=== PATIENT | male | born 1940 | race Caucasian/White ===

== ENCOUNTER → 2017-03-30 | Outpatient (CLI) | payer MEDICARE, OTHER | LOC: GMAL 10:33 | PROVIDERS: ATTEND Family Medicine | DX: D51.3 Other dietary vitamin B12 deficiency anemia (principal); E55.9 Vitamin D deficiency, unspecified; Z79.899 Other long term (current) drug therapy ==

== ENCOUNTER → 2017-04-03 | Outpatient (CLI) | payer MEDICARE, OTHER | END | disposition home or self-care (01) | LOC: GMAL 14:06 | PROVIDERS: ATTEND Family Medicine | DX: Z12.5 Encounter for screening for malignant neoplasm of prostate (principal) ==

== ENCOUNTER → 2018-05-15 | Outpatient (CLI) | payer MEDICARE, OTHER | LOC: GMAL 10:47 | PROVIDERS: ATTEND Family Medicine | DX: D51.3 Other dietary vitamin B12 deficiency anemia (principal); R53.83 Other fatigue; E55.9 Vitamin D deficiency, unspecified; Z12.5 Encounter for screening for malignant neoplasm of prostate | CPT/HCPCS: 82306; 82607; 84443; G0103 ==

== ENCOUNTER → 2018-05-22 | Outpatient (CLI) | payer MEDICARE, OTHER ==
--- NOTE | 2018-05-22 12:16 | US ---
EXAM DESCRIPTION: Abdomen,Complete CLINICAL HISTORY: ABDOMINAL PAIN COMPARISON: CT abdomen and pelvis December 22, 2014 TECHNIQUE: Complete abdominal ultrasound FINDINGS: Visualized portions of the pancreas are unremarkable. No peripancreatic fluid. Bowel gas obscures some areas. Normal caliber of the aorta. Normal appearance of the inferior vena cava. Liver parenchyma is homogeneous in texture with increased echogenicity suggesting mild steatosis. No liver mass or intrahepatic bile duct dilatation. No liver surface irregularity. Normal appearance of hepatic veins and portal vein. Gallbladder appears normal in size with a single stone in the neck measuring 9 mm. Sonographic Sal's sign was reported as negative. No gallbladder wall thickening. Radionuclide hepatobiliary scan may be helpful. Common bile duct is normal in caliber measuring 3.5 mm. The right kidney measures 7.2 cm in length. This is abnormally small consistent with global atrophy or chronic scarring. Correlate with renal function tests. Normal renal cortical echogenicity. Marked cortical thinning is seen at the upper and lower poles. No right renal mass, shadowing stone or cyst. There is no hydronephrosis. Spleen is normal in size. No focal splenic lesion. The left kidney measures 9.1 cm in length which is small. Many cysts are seen replacing much of the left kidney. The visualized parenchyma has normal echogenicity. Large cyst or renal pelvis measures 8.6 x 5.4 x 9.5 cm. No stones. Parapelvic cysts are thought most likely but there could be a large extrarenal pelvis. Compared to CT abdomen and pelvis December 22, 2014, a rim calcified gallstone was present in the gallbladder at that time. The liver did not appear particularly low in density. Right kidney was small. Left kidney was enlarged by multiple cysts. Parapelvic cysts are favored over hydronephrosis. Delayed postcontrast CT images through the kidney obtained at that time showed intrarenal collecting system deformed by large parapelvic cysts with no obstruction of the collecting system. Multiple small cortical cysts were also present. IMPRESSION: Small right kidney. Multiple left renal parapelvic cysts. Single 9 mm calculus in the neck of the gallbladder. Electronically signed by: Abraham Florez MD 05/22/2018 12:15 PM CDT
== END ==
LOC: US 08:30
PROVIDERS: ATTEND Family Medicine
DX: K80.20 Calculus of gallbladder without cholecystitis without obstruction (principal); N27.0 Small kidney, unilateral; N28.1 Cyst of kidney, acquired; R10.9 Unspecified abdominal pain; M35.3 Polymyalgia rheumatica; R53.83 Other fatigue; M25.50 Pain in unspecified joint; M79.1 Myalgia

== ENCOUNTER 2018-09-05 01:50 | Inpatient (IN) | payer MEDICARE, OTHER ==
--- NOTE | 2018-09-05 02:24 | ED.PDOC ---
History of Present Illness - General Chief Complaint: Abdominal Pain Stated Complaint: abdominal pain Time Seen by Provider: 09/05/18 02:11 Information Source: patient Exam Limitations: no limitations - History of Present Illness Initial Comments: Bijan Omer 78 y/o male came to hospital with intermittent dull pain upper abdomen non radiating started this noontime after eating lunch [place] food.Had been diagnosed with gallstone 3 months ago.No N/V/D,no dysuria/hematuria ,with good BM,no constipation. Abdominal Pain Onset Location: epigastric Pain Radiation: no radiation, other - upper abdomen Quality: moderate, dull, intermittent, waxing/waning Timing/Duration: 7-24 hours Improving Factors: nothing Worsening Factors: eating Associated Symptoms: denies symptoms Review of Systems - Review of Systems Constitutional: States: no symptoms reported EENTM: States: no symptoms reported Respiratory: States: no symptoms reported Cardiology: States: no symptoms reported Gastrointestinal/Abdominal: States: see HPI, abdominal pain Genitourinary: States: no symptoms reported Musculoskeletal: States: no symptoms reported Skin: States: no symptoms reported Past Medical History (General) - Patient Medical History Hx Seizures: No Hx Stroke: No Hx Dementia: No Hx Asthma: No Hx of COPD: No Hx Cardiac Disorders: No Hx Congestive Heart Failure: No Hx Pacemaker: No Hx Hypertension: No Hx Thyroid Disease: No Hx Diabetes: No Hx Gastroesophageal Reflux: No Hx Renal Disease: No Hx Cancer: No Hx of HIV: No Hx Hepatitis C: No Hx MRSA: No Surgical History: no surgical history - Vaccination History Hx Influenza Vaccination: Yes - Social History Hx Tobacco Use: No Hx Alcohol Use: Yes - Social Hx Substance Use: No Hx Substance Use Treatment: No Hx Depression: No Hx Physical Abuse: No Hx Emotional Abuse: No Hx Suspected Abuse: No - Activities of Daily Living Patient Lives Alone: No - Triage Comment ED Triage Comment: diagnosed with gall stone in may, pain again to upper mid abdomen Family Medical History - Family History Mother Living Status: Unknown Hx Family Cancer: Yes - lung-dad Physical Exam - Physical Exam General Appearance: Alert, Comfortable, No apparent distress Eyes, Ears, Nose, Throat Exam: normal ENT inspection Neck: non-tender, supple, normal inspection Respiratory: chest non-tender, lungs clear, normal breath sounds, no respiratory distress Cardiovascular/Chest: normal peripheral pulses, regular rate, rhythm, no murmur Peripheral Pulses: No deficit Gastrointestinal/Abdominal: soft, no organomegaly, tenderness - upper abdominal area Back Exam: no CVA tenderness, no vertebral tenderness Extremity: no pedal edema, no calf tenderness Neurologic: alert, oriented x 3 Skin Exam: normal color, warm/dry Progress - Progress Progress: 09/05/18 02:50 Vital Signs - 8 hr 09/05/18 09/05/18 02:03 02:39 Temperature 97.0 F L Pulse Rate [ 58 L 60 Right] Respiratory 16 16 Rate Blood Pressure 166/98 140/85 [Left Arm] O2 Sat by Pulse 96 Oximetry - Results/Orders Results/Orders: Laboratory Results - last 24 hr 09/05/18 09/05/18 02:25 02:38 WBC 8.2 RBC 4.37 L Hgb 15.1 Hct 43.6 MCV 99.8 H MCH 34.5 H MCHC 34.6 RDW 12.2 Plt Count 199 MPV 7.9 Absolute Neuts (auto) 6.90 H Absolute Lymphs (auto) 0.70 L Absolute Monos (auto) 0.50 Absolute Eos (auto) 0.10 Absolute Basos (auto) 0.00 Neutrophils % 83.7 H Lymphocytes % 8.9 L Monocytes % 6.0 Eosinophils % 1.0 Basophils % 0.4 PT 10.1 INR 1.01 PTT (SP) 24.1 Sodium 141 Potassium 3.9 Chloride 105 Carbon Dioxide 27 Anion Gap 12.9 BUN 19 H Creatinine 1.23 BUN/Creatinine Ratio 15.4 Random Glucose 139 H Serum Osmolality 285.8 Calcium 10.6 H Magnesium 2.0 Total Bilirubin 1.7 H Direct Bilirubin 0.3 H Indirect Bilirubin 1.4 H AST 23 ALT 23 Alkaline Phosphatase 63 Creatine Kinase 75 CK-MB (CK-2) 1.2 CK-MB (CK-2) % Not Reportable Troponin I < 0.02 Serum Total Protein 7.1 Albumin 4.1 Lipase 31 Urine Color Yellow Urine Appearance Sl cloudy Urine pH 8.5 H Ur Specific [place] 1.020 Urine Protein Trace Urine Glucose (UA) Negative Urine Ketones Trace Urine Blood Negative Urine Nitrite Negative Urine Bilirubin Negative Urine Urobilinogen 0.2 Ur Leukocyte Esterase Negative Urine RBC 1-3 Urine WBC 3-5 H Ur Epithelial Cells 3-5 Amorphous Sediment 1+ Urine Bacteria 0 Discuss test result with patient and needs hospital for inflamed gallbladder and surgical referral. - EKG/XRAY/CT CT Ordered: Yes - abd/p-acute cholecystitis;cholelithiais Departure - Departure Clinical Impression: Cholecystitis, acute with cholelithiasis Qualifiers: Biliary obstruction: without biliary obstruction Qualified Code(s): K80.00 - Calculus of gallbladder with acute cholecystitis without obstruction Time of Disposition: 04:29 Disposition: Admit Patient Condition: Fair Departure Forms: Patient Portal Self Enrollment Referrals: Tyree Manjarrez III, MD [Primary Care Provider] - 1-2 Weeks Home Medications: Ambulatory Orders Aspirin [Baby Aspirin] 81 mg PO QD 05/26/15 Simvastatin 40 mg PO DAILY 09/05/18 Decision To Admit - Decistion To Admit Decision to Admit Reason: Admit from ER Decision to Admit Date: 09/05/18 - D/W Dr. Felton-surgeon;Alessio-Hospitalist Decision to Admit Time: 04:23
[2018-09-05] MEDS ORDERED: HYDROmorphone HCL INJ 2 MG/ML VIAL IV ONE (02:25)
[2018-09-05] MEDS ORDERED: PROCHLORPERAZINE INJ 10 MG/2 ML VIAL IV ONE (02:25)
--- NOTE | 2018-09-05 03:59 | CT ---
NONCONTRAST ABDOMEN AND PELVIC CT EXAMINATION. HISTORY: Right upper abdominal pain. History of cholelithiasis. COMPARISONS: Compared to the abdomen ultrasound examination of May 22, [address] examination of December 22, 2014. PROCEDURE: Using helical technique, thin section axial images were performed through the abdomen and pelvis without the administration of intravenous or oral contrast material. FINDINGS: Fluid-filled dilated gallbladder with adjacent fatty edema and possible gallbladder wall thickening. 10 mm calcified stone at the gallbladder neck. The liver, spleen, pancreas, stomach and duodenum are grossly normal on this noncontrast examination. The great vessels appear grossly normal. Multiple large left renal parapelvic cysts. 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 The right kidney is diminutive. 5 mm nonobstructing stone in the right lower renal collecting system. The adrenal glands, kidneys, renal collecting systems, ureters and urinary bladder are grossly normal on this noncontrast examination. Moderate sigmoid colon diverticulosis without evidence of diverticulitis. No evidence of appendicitis, diverticulitis, inflammatory bowel disease, bowel obstruction, extraluminal bowel gas or retroperitoneal hemorrhage. No ascites, free pelvic fluid or evidence of intra-abdominal abscess on this noncontrast examination. Moderate to severe atherosclerotic calcification in the abdominal aorta without aneurysm. Greatest AP diameter of the infrarenal abdominal aorta measures 1.8 cm. Bones appear normal for age. IMPRESSION: 1. Calcified stone in the gallbladder neck with evidence of acute cholecystitis. No intra or extrahepatic biliary ductal dilatation. The pancreas appears normal. 2. Multiple left parapelvic cysts. 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 3. The right kidney is diminutive with the 5 mm calcified nonobstructing right lower renal collecting system stone. 4. Moderate sigmoid colon diverticulosis without evidence of diverticulitis. If clinical concern persists, post intravenous contrast and post oral contrast abdomen and pelvic CT examination should be performed for further evaluation. This exam was performed according to our departmental dose-optimization program, which includes automated exposure control, adjustment of the mA and/or kV according to patient size and/or use of iterative reconstruction technique. Electronically signed by: Nash Cruz MD 09/05/2018 3:57 AM HOSPITAL ADMINISTRATIVE ASSISTANT
[2018-09-05] MEDS ORDERED: levoFLOXacin 500MG IV 500 MG in PREMIX BAG 1 BAG IVPB ONE (04:26)
[2018-09-05] MEDS ORDERED: metroNIDAZOLE IV PREMIX 500MG 500 MG in PREMIX BAG 1 BAG IVPB ONE (04:26)
[2018-09-05] MEDS ORDERED: metroNIDAZOLE IV PREMIX 500MG 100 ML IVPB ONE ×3 (04:35→19:34)
--- NOTE | 2018-09-05 04:50 | HP ---
SUPERVISING PHYSICIAN: David Jules MD CHIEF COMPLAINT: Abdominal pain. HISTORY OF PRESENT ILLNESS: This is an 78-year-old male who came to the hospital with dull pain in his abdomen. It was diffuse, but mostly in the right lower and left lower quadrant. It did radiate up to his right upper quadrant. He said he "had way too much to eat" on Deborah and initially thought it was due to his overeating. The pain became so bad that he finally came to the hospital. He did have a workup by his primary care physician, Dr. Tyree Manjarrez, in November of this year. He had an ultrasound of the abdomen that showed no evidence of abdominal aortic aneurysm. They also found a renal cyst and he has been off and on a proton pump inhibitor over the last few months due to gastroesophageal reflux disease. In the Emergency Room, his vital signs showed he was afebrile, heart rate 58 to 62, blood pressure 166/98 on admission. It stabilized down to 133/78. Respiratory rate 16, O2 saturation 90% on room air. His labs showed WBC 8.2, hemoglobin 15.1, hematocrit 43.6. He did have a left shift on differential. His electrolytes were basically within normal limits with the exception of his calcium was slightly high at 10.6. Total bilirubin was 1.7 with a direct bilirubin of 0.3, indirect bilirubin of 1.4. His liver enzymes were basically within normal limits. Troponin was less than 0.02. Lipase 31. Urinalysis was basically within normal limits. CT of the abdomen was done and showed 1) Calcified stone in the gallbladder neck with evidence of acute cholecystitis. No intra or extrahepatic biliary ductal dilation. Pancreas appears normal. 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 3) The right kidney is diminutive with a 5 mm calcified nonobstructing right lower renal collecting system stone. 4) Moderate sigmoid colon diverticulosis without evidence of diverticulitis. He did have some nausea, but there was no vomiting. He had no chills or fever. I was called for admission to the hospital. PAST MEDICAL HISTORY: 1. Benign prostatic hypertrophy. 2. Gastroesophageal reflux disease. 3. Mild hypertension that he controls with diet and exercise. 4. Hyperlipidemia, stable. 5. Mild congestive heart failure with mild diastolic dysfunction. His last echocardiogram showed an ejection fraction of 60% which was in May of 2018. PAST SURGICAL HISTORY: None. OUTPATIENT MEDICATIONS: 1. Simvastatin. 2. Baby aspirin. ALLERGIES: NO KNOWN DRUG ALLERGIES. FAMILY HISTORY: Noncontributory. REVIEW OF SYSTEMS: GENERAL: Negative for fever, fatigue, chills or weight changes. HEENT: Negative for sinus symptoms, ear pain, vision changes or sore throat. RESPIRATORY: Negative for wheezing, coughing or shortness of breath. CARDIAC: Negative for chest pain, palpitations or tachycardia. GASTROINTESTINAL: As per history of present illness. GENITOURINARY: Negative for hematuria, dysuria or polyuria. MUSCULOSKELETAL: Negative for arthralgias, myalgias. SKIN: Negative for lesions or rashes. NEUROLOGIC: Negative for headache, dizziness or seizures. PHYSICAL EXAMINATION: VITAL SIGNS: Temperature 97.9. Heart rate 63. Blood pressure 113/72. Respiratory rate 18. O2 saturation 93% on room air. GENERAL: This is an 78-year-old male patient who appears younger than his age. He is in no acute distress. HEENT: Normocephalic, atraumatic. Pupils are equal and reactive. Oropharynx is clear. NECK: Supple without mass. RESPIRATORY: Essentially clear to auscultation bilaterally. CHEST: There is equal rise and fall of the chest with inspiration and expiration. CARDIOVASCULAR: Regular rate and rhythm. At times, he is very slightly bradycardic. There are no murmurs noted. GASTROINTESTINAL: Abdomen is soft. Bowel sounds are hypoactive in his left upper quadrant, left lower quadrant and right lower quadrant. I did not hear bowel sounds in his right upper quadrant. He is diffusely but very mildly tender in the suprapubic, right lower quadrant and right upper quadrant. There is no rebound tenderness or guarding. NEUROLOGIC: Awake, alert and oriented times three. LABORATORY: Labs are as per history of present illness. I did have an abdominal x-ray done and it shows mild constipation with multiple air distended bowel loops that are identified with no evidence of bowel obstruction. I am awaiting a gallbladder sonogram. All other labs and films have been reviewed via the EMR. IMPRESSION: 1. Abdominal pain most likely secondary to cholecystitis, but may be also complicated by constipation. 2. Nausea without vomiting secondary to #1. 3. Constipation. 4. Hyperlipidemia, stable. 5. Gastroesophageal reflux disease, stable. 6. Mild grade diastolic heart failure with an ejection fraction of 60% per echocardiogram in 05/29. PLAN: We will admit the patient to the hospital. I have consulted Dr. Felton. Dr. Felton was contacted last night before the patient was admitted. He is also NPO. I have given him some primary IV fluids as well as some antiemetics and pain medication. I have ordered an abdominal x-ray that has been done as well as gallbladder sonogram. I am awaiting results on that. Hold on his outpatient medications until Dr. Felton sees him. I have also started a proton pump inhibitor for ulcer prophylaxis and will hold off on the Lovenox until Dr. Felton decides if the patient is a surgical candidate or not and then we will proceed with DVT prophylaxis. For now, he has SCD mele. We will treat the patient on recommendation of Dr. Felton, general surgeon, and we will continue to monitor him closely and follow as needed. #[id number] [facility]
[2018-09-05] MEDS ORDERED: levoFLOXacin 500MG IV 100 ML IVPB ONE ×2 (05:13→19:34)
[2018-09-05] MEDS ORDERED: SODIUM CHLORIDE 0.9% (FLUSH) 10 ML SYG IV PRN (07:16)
[2018-09-05] MEDS ORDERED: HYDROmorphone HCL INJ 2 MG/ML VIAL IV PRN (07:22)
[2018-09-05] MEDS ORDERED: ONDANSETRON INJ 4 MG/2 ML VIAL IV PRN (07:23)
[2018-09-05] MEDS ORDERED: IV SET AND CAP CHANGE INJ INJ SCH (07:30)
[2018-09-05] MEDS: PANTOPRAZOLE SODIUM IV 40 MG VIAL IV SCH (07:59)
[2018-09-05] MEDS: DEX 5% W/NACL 0.45% 1000ML 1,000 ML IVS PRN ×2 (08:00→16:59)
[2018-09-05] MEDS: SODIUM CHLORIDE 0.9% (FLUSH) 10 ML SYG IV SCH ×2 (08:00→21:32)
--- NOTE | 2018-09-05 08:54 | RAD ---
EXAM DESCRIPTION: Abdomen Flat Upright CLINICAL HISTORY: 78 years Male, abd pain COMPARISON: CT abdomen pelvis performed on the same date. TECHNIQUE: Upright and supine of the abdomen was performed. FINDINGS: Multiple air distended bowel loops are identified with no evidence of bowel obstruction. Moderate amount of fecal material is identified. No abnormal calcifications are noted. IMPRESSION: Mild constipation. Electronically signed by: Betty Toney MD 09/05/2018 8:53 AM FOOD AND BEVERAGE ORDER CLERK
--- NOTE | 2018-09-05 11:43 | US ---
EXAM DESCRIPTION: Gall Bladder: ULTRASOUND. CLINICAL HISTORY: abd pain COMPARISON: CT scan of the abdomen today. TECHNIQUE: Transabdominal scanning: Chu-scale and Doppler modes. FINDINGS: Gallbladder: Small size with dependent sludge and echogenic stones. Largest stone 9 mm diameter. Minimal fluid around the gallbladder. No wall thickening. 2 mm. Non-tender with transducer pressure. (This may be affected by pain medication.) Common bile duct: caliber 5.9 mm within normal limits. Liver: normal echogenicity; contour liver capsule smooth where seen. No fluid around the liver. Intrahepatic biliary ducts normal caliber. Doppler hepatopedal flow portal vein.. Long axis right lobe 13.4 cm. Pancreas: Difficult to visualize. Normal size and echogenicity. Duct not seen. Aorta: Normal caliber from the proximal segment to the distal bifurcation. Right kidney: 7.9 cm Long axis. Mid renal cortical thickness 10 cm. No perirenal fluid or hydronephrosis. IMPRESSION: 1. Gallbladder containing sludge and stones but no wall thickening. Pericholecystic fluid present. Not tender with transducer pressure which may be affected by pain medication on board. Common bile duct upper normal limits caliber. 2. Normal ultrasound of the liver with no intrahepatic dilation or ascites. Pancreas was difficult to visualize. Please see abdominal CT examination report today. 3. Overall right renal size decreased with cortical thinning, normal echogenicity. Electronically signed by: Uriel Bearden MD 09/05/2018 11:42 AM REALTY LOAN SPECIALIST
[2018-09-05] MEDS: metroNIDAZOLE IV PREMIX 500MG 500 MG in PREMIX BAG 1 BAG IVPB SCH ×2 (13:53→21:31)
--- NOTE | 2018-09-05 14:36 | CONS ---
DATE OF CONSULTATION: 09/05/18 REFERRING PHYSICIAN: Hospital service HISTORY OF PRESENT ILLNESS: The patient is an 78-year-old male who was admitted early this morning through the Emergency Room for nausea and abdominal pain. This was after eating way too much on Deborah. He also notes that his abdomen is distended. In speaking to his , she says his abdomen has been distended on and off for the last several months. He denies fever or chills, denies history of light stools or dark urine or jaundice. He denies any specific food intolerance, but notes he takes Tums and Rolaids on a routine basis. In discussion, his diet consists of large amounts of fatty foods including [place]ian food, barbecue, etc. Workup in the Emergency Room revealed a distended gallbladder with a 1 cm stone in the neck with normal ducts and a normal appearing liver. PAST MEDICAL HISTORY: 1. Benign prostatic hypertrophy. 2. Gastroesophageal reflux disease. 3. Hypertension, controlled with diet and exercise. 4. Hyperlipidemia for which he take simvastatin. 5. Congestive heart failure wit h mild diastolic dysfunction. His last ejection fraction was 60%. PAST SURGICAL HISTORY: 1. Bilateral cataract surgery. 2. Tonsillectomy as a child. CURRENT MEDICATIONS: 1. Simvastatin. 2. Baby aspirin. ALLERGIES: NO KNOWN DRUG ALLERGIES. FAMILY HISTORY: Noncontributory. REVIEW OF SYSTEMS: Negative except as in the history of present illness and the fact that he notes no changes in his bowel habits, denies black stool, haylie- colored stool or blood. He denies chest pain, shortness of breath and there has been no change in his ability to void. He has passed no blood in his urine. PHYSICAL EXAMINATION: GENERAL: The patient is awake, alert, cooperative, in no acute distress. VITAL SIGNS: The patient is currently afebrile, normotensive. HEENT: Sclerae nonicteric. Mucous membranes moist. NECK: Without adenopathy. BACK: Without CVA tenderness. CHEST: Equal breath sounds anteriorly, equal motion of the chest. HEART: Regular rate and rhythm. ABDOMEN: Soft, distended. Nontender in the right upper quadrant. There is mild discomfort in the left upper quadrant, left lower quadrant and right lower quadrant. Bowel sounds are active. RECTAL: Deferred. EXTREMITIES: Without cyanosis, clubbing or edema. LABORATORY: Normal white count with a mild left shift. Hemoglobin 15. Normal liver function tests. Total bilirubin 1.7. Enzymes are otherwise okay. Normal amylase, normal troponin. CT of the abdomen revealed distended gallbladder with a possible thickened wall and a single stone in the neck. Ultrasound this morning reveals the stone, but a gallbladder that is contracted or small. There is some pericholecystic fluid and there is a negative Sal's ultrasound sound. ASSESSMENT: 1. The patient is an 78-year-old male with cholelithiasis and possibly biliary colic which may have resolved. 2. Hyperlipidemia. 3. Gastroesophageal reflux disease. 4. No significant heart disease in an active 78-year-old. PLAN: The patient has been on appropriate antibiotic therapy including Levaquin and Flagyl. He has not required medication since the Emergency Room for pain. He has been started on a proton pump inhibitor and made NPO. I agree with continuing this at this point. I have discussed this with the patient in the presence of his and his daughter who is a dentist. With his general excellent health, I do recommend that he undergo cholecystectomy although he was informed of the increased risk of urgent cholecystectomy in a patient with inflammation, so we will observe him overnight. If he continues to do well, we will advance his diet and allow him to be discharged with a cholecystectomy sometime in the near future. #[id number] [facility]
[2018-09-06] MEDS: DEX 5% W/NACL 0.45% 1000ML 1,000 ML IVS PRN ×2 (01:47→10:56)
[2018-09-06] MEDS ORDERED: metroNIDAZOLE IV PREMIX 500MG 100 ML IVPB ONE ×4 (02:33→19:30)
[2018-09-06] MEDS: levoFLOXacin 500MG IV 500 MG in PREMIX BAG 1 BAG IVPB SCH (03:02)
[2018-09-06] MEDS: metroNIDAZOLE IV PREMIX 500MG 500 MG in PREMIX BAG 1 BAG IVPB SCH ×3 (04:32→20:43)
[2018-09-06] MEDS: PANTOPRAZOLE SODIUM IV 40 MG VIAL IV SCH (07:46)
[2018-09-06] MEDS: SODIUM CHLORIDE 0.9% (FLUSH) 10 ML SYG IV SCH ×2 (07:47→20:42)
--- NOTE | 2018-09-06 18:53 | PN ---
DATE: 09/06/18 SUPERVISING PHYSICIAN: David Jules M.D. SUBJECTIVE: The patient is lying in bed. He says he tolerated his clear liquid lunch without any difficulty. He had seen Dr. Felton earlier in the day. He has no complaints of nausea, vomiting, diarrhea, abdominal pain, chest pain or shortness of breath. OBJECTIVE: VITAL SIGNS: Temperature 98.9, heart rate 65, blood pressure 112/69, respiratory rate 16, O2 sat 93% on room air. RESPIRATORY: Essentially clear to auscultation bilaterally. CARDIAC: Regular rate and rhythm. GASTROINTESTINAL: Abdomen is soft. It is nondistended. Bowel sounds are positive. EXTREMITIES: No cyanosis, clubbing or edema. NEUROLOGIC: He is awake, alert and oriented times three. LABORATORY: WBCs are 4.2, hemoglobin 13.6, hematocrit 39.5. Electrolytes are basically within normal limits. Total bilirubin is elevated at 2.3. Gallbladder sonogram shows: 1) Gallbladder containing sludge and stones but no wall thickening. Pericholecystic fluid present. Not tender with transducer pressure which may be affected by pain medication on board. Common bile duct upper normal limits caliber. 2) Normal ultrasound of the liver with no intrahepatic dilation or ascites. Pancreas was difficult to visualize. 3) Overall right renal size decreased with cortical thinning, normal echogenicity. All other labs and films have been reviewed via the EMR. ASSESSMENT: 1. Abdominal pain most likely secondary to cholecystitis, but may be also complicated by constipation. His abdominal pain has resolved. 2. Nausea without vomiting secondary to #1. 3. Constipation. 4. Hyperlipidemia, stable. 5. Gastroesophageal reflux disease, stable. 6. Mild grade diastolic heart failure with an ejection fraction of 60% per echocardiogram in 05/29. PLAN: We will continue present supportive care. His gallbladder issues and surgical issues will be per Dr. Basim Felton, general surgeon. We will continue to follow his recommendations. I have advanced his diet to a low fat diet this evening. If he tolerates that well he may be able to go home tomorrow. The plan is from Dr. Felton to do a cholecystectomy after completion of his Flagyl and Levaquin antibiotics. We will do that on an outpatient basis. Otherwise will encourage good pulmonary hygiene. I have ordered a CMP tomorrow plus a magnesium. Will continue to follow him closely and treat as needed. [facility][id number] [facility]
[2018-09-06] MEDS ORDERED: levoFLOXacin 500MG IV 100 ML IVPB ONE (19:31)
[2018-09-07] MEDS: levoFLOXacin 500MG IV 500 MG in PREMIX BAG 1 BAG IVPB SCH (02:35)
[2018-09-07] MEDS: metroNIDAZOLE IV PREMIX 500MG 500 MG in PREMIX BAG 1 BAG IVPB SCH (04:48)
[2018-09-07] MEDS: DEX 5% W/NACL 0.45% 1000ML 1,000 ML IVS PRN (04:52)
[2018-09-07 06:52] VITALS: BP 125/79; TEMP 97.9
[2018-09-07] MEDS: PANTOPRAZOLE SODIUM IV 40 MG VIAL IV SCH (07:19)
[2018-09-07] MEDS: SODIUM CHLORIDE 0.9% (FLUSH) 10 ML SYG IV SCH (08:02)
[2018-09-07 08:21] VITALS: O2SAT 91
--- NOTE | 2018-09-07 13:51 | DS ---
SUPERVISING PHYSICIAN: David Jules MD DISCHARGE DIAGNOSIS: 1. Abdominal pain most likely secondary to cholecystitis, but may be also complicated by constipation. His abdominal pain has resolved. 2. Nausea without vomiting secondary to #1. 3. Constipation. 4. Hyperlipidemia, stable. 5. Gastroesophageal reflux disease, stable. 6. Mild grade diastolic heart failure with an ejection fraction of 60% per echocardiogram in 05/29. 7. Hyperbilirubinemia. His baseline bilirubin is 1.7. HISTORY OF PRESENT ILLNESS: This is an 78-year-old male who came to the hospital with dull pain in his abdomen. The pain was diffuse, but mostly in the right lower and left lower quadrant. It did radiate up to his right upper quadrant. He said he "had way too much to eat" on [place] and initially thought his abdominal pain was due to overeating. The pain became so bad that he finally came to the hospital. He did have a workup by his primary care physician, Dr. Tyree Manjarrez, in November of this year. He had an ultrasound of the abdomen that showed no evidence of abdominal aneurysm. They found a renal cyst and he had been off and on a proton pump inhibitor over the prior few months due to gastroesophageal reflux disease. In the Emergency Room, his vital signs showed he was afebrile, heart rate 58 to 62, blood pressure 166/98. His blood pressure was later 133/78. Respiratory rate 16, O2 saturation 90% on room air. His labs showed WBC 8.2, hemoglobin 15.1, hematocrit 43.6. He did have a left shift on differential. His electrolytes were basically within normal limits with the exception of his calcium was slightly high at 10.6. Total bilirubin was 1.7 with a direct bilirubin of 0.3, indirect bilirubin of 1.4. He does have a history of high bilirubin. His liver enzymes were basically within normal limits. Troponin was less than 0.02. Lipase 31. Urinalysis was basically within normal limits. CT of the abdomen was done and showed 1) Calcified stone in the gallbladder neck with evidence of acute cholecystitis. No intra or extrahepatic biliary ductal dilation. Pancreas appears normal. 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 3) The right kidney is diminutive with a 5 mm calcified nonobstructing right lower renal collecting system stone. 4) Moderate sigmoid colon diverticulosis without evidence of diverticulitis. He did have some nausea, but there was no vomiting. He had no chills or fever. He was admitted to the hospital. HOSPITAL COURSE: The patient was admitted to the hospital. His abdominal pain mostly disappeared. Dr. Felton was consulted. He was placed on bowel rest, given IV fluids as well as a proton pump inhibitor for ulcer prophylaxis and SCDs for DVT prophylaxis. We gave him Levaquin and metronidazole. Dr. Felton felt since he had not had any further abdominal pain that it would be beneficial for the patient to wait until he completed his antibiotic course and do his cholecystectomy as an outpatient after completion of his antibiotics. There was no shift on his differential. His WBCs were 4.2 with hemoglobin 13.6, hematocrit 39.5. Electrolytes remained within normal limits. He did have a slightly low magnesium. His bilirubin was 2.2. He was given some magnesium supplementation. During his stay, he did get a gallbladder ultrasound which showed 1) Gallbladder containing sludge and stones, but no wall thickening. Pericholecystic fluid present. Not tender with transducer pressure. 2) Normal ultrasound of the liver with no intrahepatic dilation or ascites. Pancreas was difficult to visualize. 3) Overall right renal size decreased with cortical thinning, normal echogenicity. The patient's diet was advanced. He was continued on his Levaquin and Flagyl. Vital signs remained stable. He will be discharged home today. DISCHARGE PLAN: The patient will be discharged home in stable condition. He is to increase his activity as tolerated. He will be on 8 additional days of Levaquin and Flagyl. He has also been given instructions for Dr. Felton's fat- free diet. He is to follow that as closely as possible. He has a followup appointment with Dr. Manjarrez on 09/12/18 at 8:30 AM. He is to followup with Dr. Felton within 2 weeks, close to completion of his antibiotics. He is to return to the hospital or followup with Dr. Manjarrez or Dr. Felton for any problems or complications. DISCHARGE MEDICATIONS: 1. Aspirin. 2. Simvastatin. 3. Levaquin. 4. Metronidazole. #[id number] [facility]
== END 2018-09-07 10:25 | disposition home or self-care (01) | DRG 445 ==
LOC: ER 01:50 → MS 04:49
PROVIDERS: ADMIT Nurse Practitioner Acute Care; ATTEND Nurse Practitioner Acute Care
DX: K80.00 Calculus of gallbladder with acute cholecystitis without obstruction (principal); I50.32 Chronic diastolic (congestive) heart failure; K59.00 Constipation, unspecified; N28.1 Cyst of kidney, acquired; K21.9 Gastro-esophageal reflux disease without esophagitis; K57.30 Diverticulosis of large intestine without perforation or abscess without bleeding; N40.0 Benign prostatic hyperplasia without lower urinary tract symptoms; I11.0 Hypertensive heart disease with heart failure; E78.5 Hyperlipidemia, unspecified; E80.6 Other disorders of bilirubin metabolism; Z79.82 Long term (current) use of aspirin

== ENCOUNTER 2018-10-11 05:32 | Day surgery (SDC) | payer MEDICARE, OTHER ==
--- NOTE | 2018-10-05 10:10 | RAD ---
EXAM DESCRIPTION: Chest,2 Views CLINICAL HISTORY: Pre Surgery (10/11/18) COMPARISON: None TECHNIQUE: PA/lateral FINDINGS: The lungs are well expanded and clear. No infiltrates or effusions or masses are noted. The heart is normal in size and shape with no evidence of vascular congestion. The olesya and mediastinum demonstrate normal contours. The bony spine and chest wall is normal for age in appearance. IMPRESSION: Normal chest, two views Electronically signed by: David Sloan MD 10/05/2018 10:09 AM [facility]
[2018-10-11] MEDS ORDERED: KETOROLAC TROMETHAMINE INJ 30 MG/ML VIAL ONE (07:00)
[2018-10-11] MEDS ORDERED: PROPOFOL 200 MG/20 ML VIAL IV ONE (07:00)
[2018-10-11] MEDS ORDERED: raNITIdine HCL INJ 25 MG/ML VIAL ONE (07:00)
[2018-10-11] MEDS ORDERED: DEXAMETHASONE INJ 10 MG/ML VIAL ONE (07:00)
[2018-10-11] MEDS ORDERED: LIDOCAINE 1% 10 ML VIAL INJ ONE (07:00)
[2018-10-11] MEDS ORDERED: ePHEDrine SULF 50 MG/ML ONE (07:00)
[2018-10-11] MEDS ORDERED: METOCLOPRAMIDE HCL INJ 10 MG/2 ML VIAL ONE (07:00)
[2018-10-11] MEDS ORDERED: SODIUM CHL 0.9% 100ML MINI-BAG 100 ML IVPB ONE (07:01)
[2018-10-11] MEDS ORDERED: LACTATED RINGERS 1,000 ML ONE (07:01)
[2018-10-11] MEDS ORDERED: ceFAZolin SODIUM 1 GM VIAL ONE (07:01)
[2018-10-11] MEDS ORDERED: HEPARIN SODIUM (PORCINE) 10,000 UNITS/ML VIAL ONE (07:35)
[2018-10-11] MEDS ORDERED: BUPIVACAINE 0.25% W/EPI 50 ML VIAL INJ ONE (07:35)
[2018-10-11] MEDS ORDERED: ROCURONIUM BROMIDE 10 MG/ML VIAL ONE (07:41)
[2018-10-11] MEDS ORDERED: MIDAZOLAM INJ 2 MG/2 ML VIAL ONE (07:41)
[2018-10-11] MEDS ORDERED: fentaNYL CITRATE INJ 50 MCG/ML AMP ONE (07:41)
[2018-10-11] MEDS ORDERED: ACETAMINOPHEN IV 1000MG 100 ML ONE (07:41)
[2018-10-11] MEDS ORDERED: SUGAMMADEX SODIUM 200 MG/2 ML VIAL IV ONE (09:44)
--- NOTE | 2018-10-11 10:37 | OP ---
DATE OF PROCEDURE: 10/11/18 PREOPERATIVE DIAGNOSIS: 1. Symptomatic cholelithiasis. POSTOPERATIVE DIAGNOSIS: 1. Symptomatic cholelithiasis. 2. Chronic cholecystitis. 3. Possible choledocholithiasis. PROCEDURE: 1. Laparoscopic cholecystectomy with intraoperative cholangiography. SURGEON: Basim Felton MD. MGMT SPECIALIST: None. ANESTHESIA: Local infiltration of 0.25% Marcaine with epinephrine and general endotracheal anesthesia. INDICATION: The patient is an 78-year-old male who in August was admitted with acute cholecystitis. He was treated with antibiotics at that time. His symptoms resolved and he has stayed relatively asymptomatic. The patient was brought to the Surgical Suite today for cholecystectomy with cholangiography after the risks, benefits and alternatives to the procedure were discussed and accepted. FINDINGS: There were multiple adhesions to the gallbladder from the omentum. Intraoperative cholangiography revealed at first a possible filling defect in the distal common bile duct and there was visualization of the pancreatic duct. Eventually, the bile duct drained well and the three upper branches were identified. DESCRIPTION OF PROCEDURE: After adequate general endotracheal anesthesia was obtained, the patient was prepped and draped in the usual sterile manner in the supine position. Surgical time-out was taken. The supraumbilical area was infiltrated with local anesthesia. A vertical incision was made and taken down through the skin and subcutaneous tissue to the midline fascia using blunt dissection. Traction sutures were placed on either side of the midline. A small incision was made in the midline fascia and the peritoneum was opened bluntly. Aamir trocar was introduced under direct vision into the abdominal cavity and fixed in place with the 20 mL balloon. CO2 was then insufflated until a pressure of 12 mmHg was reached and the abdomen was tympanitic in all four quadrants. When this was done, the laparoscope was introduced. The abdomen was inspected with the previously noted findings. The patient was then placed in reverse Trendelenburg position and turned to the left side. The upper abdominal ports were placed under direct vision. The gallbladder was grasped, retracted anteriorly. The adhesions to the gallbladder were then taken down using blunt dissection and electrocautery. Eventually, the gallbladder was retracted anteriorly and laterally. The neck of the gallbladder was grasped and retracted laterally. The triangle of Calot was then explored with the cystic duct and cystic artery identified. The cystic duct was hemoclipped once proximally. The cystic artery was hemoclipped twice proximally and once distally. A small incision was made in the cystic duct. The cholangiogram catheter was introduced through a separate stab wound in the right upper quadrant, introduced into the cystic duct and clipped in place. Cholangiograms were then taken using fluoroscopy which revealed eventually good flow into the duodenum. It did show some of the pancreatic duct. There was a question of a filling defect in the distal common bile duct, but this is not consistently seen. At this point, the cystic duct catheter was removed. The cystic duct was hemoclipped three times distally and divided between the hemoclips. The cystic artery was divided. The gallbladder was then dissected free from the gallbladder bed of the liver using electrocautery. Two other small vessels were clipped. During this dissection, the gallbladder was removed from the supraumbilical port site in the usual manner under direct vision. When this was done, the port was replaced. The subhepatic space and subphrenic space were irrigated copiously with saline. The gallbladder bed of the liver and the dejon hepatis were inspected and no bleeding or bile leak was identified. The upper abdominal ports were removed under direct vision and good hemostasis was noted. At this point, the CO2, the laparoscope and the supraumbilical port were removed. The supraumbilical port site fascia was approximated with a single [id number] suture. When this was tightened and tied, the subcutaneous tissue was irrigated with saline. Skin edges were approximated with 4-0 Vicryl subcuticular sutures, benzoin and Steri-Strips. Sterile dressings were applied. The patient was awakened and taken to the Recovery Room in good and stable condition. Estimated blood loss was less than 50 mL. All sponge, needle and instrument counts were correct. #[id number] [facility]
[2018-10-11] MEDS ORDERED: HYDROcodone 5MG/APAP 325MG 1 EA TAB ONE ×2 (11:03→11:50)
[2018-10-11 13:19] VITALS: O2SAT 97
[2018-10-11 13:39] VITALS: BP 158/74; TEMP 96.9
== END 2018-10-11 12:45 | disposition home or self-care (01) ==
LOC: AMB 05:32
PROVIDERS: ATTEND Surgery
DX: K80.10 Calculus of gallbladder with chronic cholecystitis without obstruction (principal); K82.8 Other specified diseases of gallbladder; I25.10 Atherosclerotic heart disease of native coronary artery without angina pectoris; K21.9 Gastro-esophageal reflux disease without esophagitis; N40.0 Benign prostatic hyperplasia without lower urinary tract symptoms; M35.3 Polymyalgia rheumatica; I50.30 Unspecified diastolic (congestive) heart failure; Z79.82 Long term (current) use of aspirin; Z79.899 Other long term (current) drug therapy
CPT/HCPCS: 00790; 36415; 47563; 71046; 76000; 80053; 81001; 85025; 88304; 93005; J0690; J1100; J1644; J1885; J2250; J2765; J2780; J3010; J3490; J7050; J7120

== ENCOUNTER → 2018-10-23 | Outpatient (CLI) | payer MEDICARE, OTHER ==
--- NOTE | 2018-10-25 09:58 | MRI ---
EXAM DESCRIPTION: Abdomen MRCP: MRI. CLINICAL HISTORY: 78 years Male ABNORMAL CHOLANGIOGRAM. Cholecystectomy 2 weeks ago. Diverticulum-like contrast collection abutting the common bile duct during surgery. COMPARISON: CT scan of the abdomen and pelvis 09/05/2018. Ultrasound gallbladder 09/05/2018. TECHNIQUE: Multiplanar, high-field MRI, multiple sequences, without contrast: Spin-echo, diffusion weighted sequences, 2D sequences, 3D sequences, and single shot sequences. FINDINGS: The common bile duct is well demonstrated from the hepatic duct to the duodenum. No obstruction, no filling defects, no diverticula. Normal caliber and no mass effect. Normal caliber of the pancreatic duct without mass effect. No focal mass in the pancreas or surrounding fluid or fatty edema. Normal caliber of the right left intrahepatic ducts and main hepatic duct with no diverticulum, mass effect, filling defect or obstruction. Liver, spleen, stomach, and adrenal glands: Small hiatal hernia. Other organs are unremarkable. No ascites. Kidneys: Right kidney small with cortical thinning. Juxta cortical cyst inferior pole no hydronephrosis. Markedly enlarged left kidney with multiple cysts. Kidney measures 10.7 x 8.9 x 7.5 cm. Minimal thinning of the cortex, with no hydronephrosis. Bilateral perinephric fatty edema. Proximal ureter is not dilated. Bowel: No significant distention or air-fluid levels. Mesentery: No free fluid. No fatty stranding or fascial thickening. Pararenal fatty stranding is physiologic. Aorta: Atherosclerotic changes with no aneurysm or stenosis. No para-aortic abnormalities. Lung bases: No dominant masses or infiltrates. No pleural effusion. Osseous structures: No abnormal marrow signal or destructive lesions. Chest/abdominal wall and soft tissues: Unremarkable. IMPRESSION: 1. No obstruction, mass effect, filling defect, or abnormal contour of the common bile duct, pancreatic duct, common hepatic duct, or distal right left hepatic ducts. No abnormal fluid accumulation around the biliary tract. 2. Markedly enlarged left kidney with multiple cysts. This could be chronic obstruction. The visualized left ureter is not dilated. Small atrophic right kidney with smaller cyst lower pole. The findings were reviewed in person with Dr. Felton at approximately 1500 hours on October 24, 2018. Electronically signed by: Uriel Bearden MD 10/25/2018 9:56 AM [employer]
== END ==
LOC: MRI 11:04
PROVIDERS: ATTEND Surgery
DX: R93.2 Abnormal findings on diagnostic imaging of liver and biliary tract (principal); N28.1 Cyst of kidney, acquired

== ENCOUNTER → 2018-11-27 | Outpatient (CLI) | payer MEDICARE, OTHER | LOC: GMAL 10:45 | PROVIDERS: ATTEND Family Medicine | DX: E53.8 Deficiency of other specified B group vitamins (principal); E55.9 Vitamin D deficiency, unspecified ==

== ENCOUNTER → 2020-10-13 | Outpatient (CLI) | payer MEDICARE, OTHER | LOC: GMAL 10:43 | PROVIDERS: ATTEND Family Medicine | DX: E53.8 Deficiency of other specified B group vitamins (principal); E78.49 Other hyperlipidemia; E55.9 Vitamin D deficiency, unspecified; Z12.5 Encounter for screening for malignant neoplasm of prostate; R53.83 Other fatigue; Z79.899 Other long term (current) drug therapy | CPT/HCPCS: 82306; 82607; 84443; G0103 ==